=== PATIENT | female | born 1975 | race Caucasian/White ===

== ENCOUNTER 2017-03-14 17:29 | Inpatient (IN) | payer SELFPAY ==
[~2017-03-14] VITALS: Ht 165.1 cm; Wt 51.4 kg
[2017-03-14 19:44] LABS: HEMATOCRIT 37.3 % (36.0-46.0); HEMOGLOBIN 12.4 G/DL (11.9-15.5); MCH 29.5 PG (29.0-34.0); MCHC 33.2 G/DL (30.0-36.0); MCV 88.6 FL (83-99); PLATELET COUNT 313 K/uL (156-360); RBC DIS.WIDTH-CV 14.7 % (11.8-14.6); RBC DIS.WIDTH-SD 47.5 % (39-53); RED BLOOD COUNT 4.21 M/uL (3.80-5.20); WHITE BLOOD COUNT 11.1 K/uL (4.1-10.2)
[2017-03-14 19:55] LABS: CHLORIDE 107 mEq/L (99-109); POTASSIUM 3.4 mEq/L (3.7-5.4); SODIUM 138 mEq/L (136-147)
[2017-03-14 19:56] LABS: GLUCOSE 87 mg/dL (70-99)
[2017-03-14 20:00] LABS: CREATININE 0.6 mg/dL (0.6-1.3); GFR ESTIMATE (CALCULATED) > 59 mL/min/
[2017-03-14 20:01] LABS: UREA NITROGEN (BUN) 8 mg/dL (9-23)
[2017-03-14] MEDS ORDERED: KLONOPIN0.5 M1 PO (21:04)
[2017-03-14] MEDS ORDERED: OXYCODONE HCL15 MG PO (21:05)
[2017-03-14] MEDS ORDERED: MOTRIN800 MG PO (21:05)
[2017-03-14] MEDS ORDERED: PROMETHAZINE HC25 M1 PO (21:06)
[2017-03-14] MEDS ORDERED: METHADONE10 MG PO (21:06)
[2017-03-15 02:38] VITALS: BP 125/87
[2017-03-15 06:57] LABS: HEMATOCRIT 35.3 % (36.0-46.0); HEMOGLOBIN 11.4 G/DL (11.9-15.5); MCH 29.6 PG (29.0-34.0); MCHC 32.3 G/DL (30.0-36.0); MCV 91.7 FL (83-99); PLATELET COUNT 276 K/uL (156-360); RBC DIS.WIDTH-CV 14.8 % (11.8-14.6); RBC DIS.WIDTH-SD 49.7 % (39-53); RED BLOOD COUNT 3.85 M/uL (3.80-5.20); WHITE BLOOD COUNT 9.6 K/uL (4.1-10.2)
[2017-03-15 07:27] LABS: CHLORIDE 108 MEQ/L (99-109); CREATININE 0.6 MG/DL (0.6-1.3); GFR ESTIMATE (CALCULATED) > 59 mL/min/; GLUCOSE 85 mg/dL (70-99); SODIUM 140 MEQ/L (136-147); UREA NITROGEN (BUN) 11 mg/dL (9-23)
[2017-03-15 07:47] LABS: POTASSIUM 4.2 MEQ/L (3.7-5.4)
[2017-03-15 08:09] VITALS: BP 126/73
[2017-03-15 16:32] VITALS: BP 121/61
[2017-03-16 00:46] VITALS: BP 128/71
[2017-03-16 06:37] LABS: CHLORIDE 107 MEQ/L (99-109); CREATININE 0.7 MG/DL (0.6-1.3); GFR ESTIMATE (CALCULATED) > 59 mL/min/; GLUCOSE 91 mg/dL (70-99); MAGNESIUM 1.8 mg/dl (1.3-2.7); SODIUM 141 MEQ/L (136-147); UREA NITROGEN (BUN) 10 mg/dL (9-23)
[2017-03-16 07:17] VITALS: BP 170/65
[2017-03-16 11:16] LABS: BASOPHIL (%) 1.1 % (0-1); BASOPHIL COUNT 0.1 K/uL (0-0.1); EOSINOPHIL (%) 6.3 % (0-5); EOSINOPHIL COUNT 0.4 K/uL (0-0.3); HEMATOCRIT 33.5 % (36.0-46.0); HEMOGLOBIN 10.7 G/DL (11.9-15.5); IMMATURE GRANULOCYTE (%) 0.9 % (0.0-0.7); LYMPHOCYTE COUNT 2.4 K/uL (1.0-2.8); MCH 29.6 PG (29.0-34.0); MCHC 31.9 G/DL (30.0-36.0); MCV 92.5 FL (83-99); MONOCYTE (%) 7.7 % (3-12); MONOCYTE COUNT 0.5 K/uL (0-0.8); NEUTROPHIL COUNT 3.4 K/uL (1.8-6.4); PLATELET COUNT 257 K/uL (156-360); RBC DIS.WIDTH-CV 14.6 % (11.8-14.6); RBC DIS.WIDTH-SD 49.7 % (39-53); RED BLOOD COUNT 3.62 M/uL (3.80-5.20)
[2017-03-16 15:15] VITALS: BP 116/70
[2017-03-17 00:07] VITALS: BP 145/90
[2017-03-17] MEDS ORDERED: KLONOPIN0.5 M1 PO (09:32)
[2017-03-17] MEDS ORDERED: DOXYCYCLINE HY100 MG PO (09:32)
[2017-03-17] MEDS ORDERED: MOTRIN800 MG PO (09:32)
[2017-03-17] MEDS ORDERED: THIAMINE HCL100 MG PO (09:32)
[2017-03-17] MEDS ORDERED: FOLIC ACID1 MG PO (09:32)
[2017-03-17] MEDS ORDERED: OXYCODONE HCL15 MG PO (09:32)
[2017-03-17] MEDS ORDERED: POLY-VITAMIN1 EACH PO (09:32)
[2017-03-17] MEDS ORDERED: LEVETIRACETAM500 MG PO (09:32)
[2017-03-17] MEDS ORDERED: PROMETHAZINE HC25 M1 PO (09:32)
== END 2017-03-17 15:49 | disposition home or self-care (01) | DRG 603 ==
LOC: EME 17:29 → 5SOUTH 21:59 → EDOF 21:59 → ENRESERV 22:00 → 5SOUTH 03-15 02:13 → ENPENDDIS 03-17 10:24 → 5SOUTH 03-17 15:49
PROVIDERS: Internal Medicine; Physician Assistant Medical
DX: L03.113 Cellulitis of right upper limb (principal); Z68.1 Body mass index [BMI] 19.9 or less, adult; F10.239 Alcohol dependence with withdrawal, unspecified; F11.20 Opioid dependence, uncomplicated; L03.011 Cellulitis of right finger; G89.4 Chronic pain syndrome; S61.210A Laceration without foreign body of right index finger without damage to nail, initial encounter; L08.9 Local infection of the skin and subcutaneous tissue, unspecified; W26.0XXA Contact with knife, initial encounter; M65.841 Other synovitis and tenosynovitis, right hand; G40.409 Other generalized epilepsy and epileptic syndromes, not intractable, without status epilepticus; F17.210 Nicotine dependence, cigarettes, uncomplicated; Y90.9 Presence of alcohol in blood, level not specified; F41.9 Anxiety disorder, unspecified; Y92.89 Other specified places as the place of occurrence of the external cause; Z91.14 Patient's other noncompliance with medication regimen; Z88.0 Allergy status to penicillin; Z88.1 Allergy status to other antibiotic agents; Z80.49 Family history of malignant neoplasm of other genital organs
CPT/HCPCS: 73130; 80048; 80202; 83605; 83735; 85025; 85027; 87040; 95819; 99281; 99284; G0480; J0696; J1200; J1650; J1885; J2060; J2405; J3370; J3411; J7030

== ENCOUNTER 2017-04-13 12:09 | Emergency (ER) | payer SELFPAY ==
[~2017-04-13] VITALS: Ht 167.6 cm; Wt 56.9 kg
[~2017-04-13 12:09] MED LIST: DOXYCYCLINE HY100 MG PO; FOLIC ACID1 MG PO; KLONOPIN0.5 M1 PO; LEVETIRACETAM500 MG PO; METHADONE10 MG PO; MOTRIN800 MG PO; OXYCODONE HCL15 MG PO; POLY-VITAMIN1 EACH PO; PROMETHAZINE HC25 M1 PO; THIAMINE HCL100 MG PO
[2017-04-13] MEDS ORDERED: NAPROSYN500 MG PO (14:47)
[2017-04-13] MEDS ORDERED: LIDODERM 5% P1 PATCH TD (14:47)
[2017-04-13 15:08] VITALS: BP 118/78
== END 2017-04-13 15:09 | disposition home or self-care (01) ==
LOC: EME 12:09
DX: S20.212A Contusion of left front wall of thorax, initial encounter (principal); F10.10 Alcohol abuse, uncomplicated; W00.0XXA Fall on same level due to ice and snow, initial encounter; Y92.009 Unspecified place in unspecified non-institutional (private) residence as the place of occurrence of the external cause; Y90.9 Presence of alcohol in blood, level not specified; F17.200 Nicotine dependence, unspecified, uncomplicated; Z71.6 Tobacco abuse counseling; Z88.0 Allergy status to penicillin
CPT/HCPCS: 71046; 99281; 99283; J1885